=== PATIENT | female | born 1990 | race Caucasian/White ===

== ENCOUNTER 2018-03-21 22:36 | Emergency (ER) | payer OTHER, MEDICAID ==
[~2018-03-21] VITALS: Ht 162.6 cm; Wt 56.7 kg
[~2018-03-21 22:36] MED LIST: AMOXICILLIN500 M1 PO; AZO95 MG; CEFUROXIME500 MG PO; CIPROFLOXACIN500 M1 PO; GNP PRENATAL V PO; HYDROCODONE-AP1 EAC6 PO; IBUPROFEN200 M2; MACROBID 100 M100 M1 PO; METAMUCIL425 GM PO; NORCO 5-325 TA1 EACH PO; PHENERGAN 25 MG25 M1 PO; PRENATAL; PYRIDIUM200 MG PO; TRANSDERM-SCO1 PATC1 TRANSDERM; [UNRECOGNIZED DRUG - OTHER]
[2018-03-21] MEDS ORDERED: KEFLEX500 M1 PO (23:20)
[2018-03-21] MEDS ORDERED: PREDNISONE 10 M10 MG PO (23:20)
[2018-03-21] MEDS ORDERED: VISTARIL 25 MG25 M1 PO (23:20)
[2018-03-22 00:09] VITALS: BP 109/68
== END 2018-03-22 00:10 | disposition home or self-care (01) ==
LOC: M.ERS 22:36
DX: L23.7 Allergic contact dermatitis due to plants, except food (principal); L03.116 Cellulitis of left lower limb; K21.9 Gastro-esophageal reflux disease without esophagitis

== ENCOUNTER 2018-08-14 18:27 | Emergency (ER) | payer OTHER, MEDICAID ==
[~2018-08-14] VITALS: Ht 162.6 cm; Wt 59.0 kg
[~2018-08-14 18:27] MED LIST changes: +KEFLEX500 M1 PO; +PREDNISONE 10 M10 MG PO; +VISTARIL 25 MG25 M1 PO
[2018-08-14 18:36] VITALS: BP 110/71
[2018-08-14 18:56] LABS: URINE BILIRUBIN NEGATIVE (Negative); URINE BLOOD NEGATIVE (Negative); URINE CLARITY CLEAR; URINE COLOR YELLOW; URINE GLUCOSE-RANDOM NEGATIVE (Negative); URINE KETONES NEGATIVE (Negative); URINE LEUKOCYTES-REFLEX NEGATIVE (Negative); URINE NITRITE-REFLEX NEGATIVE (Negative); URINE PROTEIN NEGATIVE (Negative); URINE SPECIFIC GRAVITY >= 1.030 (1.005-1.030); URINE UROBILINOGEN 0.2 E.U./dl (0.2-1.0)
[2018-08-14] MEDS ORDERED: FLEXERIL PO (19:04)
[2018-08-14] MEDS ORDERED: IBU800 MG PO (19:05)
== END 2018-08-14 19:15 | disposition home or self-care (01) ==
LOC: M.ERS 18:27
PROVIDERS: Nurse Practitioner
DX: N30.10 Interstitial cystitis (chronic) without hematuria (principal); R10.9 Unspecified abdominal pain; F17.200 Nicotine dependence, unspecified, uncomplicated; K21.9 Gastro-esophageal reflux disease without esophagitis; Z98.890 Other specified postprocedural states

== ENCOUNTER 2019-03-16 22:41 | Emergency (ER) | payer OTHER, MEDICAID ==
[~2019-03-16] VITALS: Ht 160 cm; Wt 63.5 kg
[~2019-03-16 22:41] MED LIST changes: +FLEXERIL PO; +IBU800 MG PO
[2019-03-16] MEDS ORDERED: PRENATAL (22:54)
[2019-03-17 00:43] LABS: URINE BILIRUBIN NEGATIVE (Negative); URINE BLOOD NEGATIVE (Negative); URINE CLARITY CLEAR; URINE COLOR YELLOW; URINE GLUCOSE-RANDOM NEGATIVE (Negative); URINE KETONES NEGATIVE (Negative); URINE LEUKOCYTES NEGATIVE (Negative); URINE NITRITE POSITIVE (Negative); URINE PROTEIN NEGATIVE (Negative)
[2019-03-17 00:52] LABS: AMP/METHAMP POSITIVE (Negative); BACTERIA >30 Many /HPF (None Seen); BARBITURATES Negative (Negative); BENZODIAZEPINES Negative (Negative); CASTS None Seen /LPF (None Seen); COCAINE Negative (Negative); CRYSTALS None Seen /LPF (None Seen); METHADONE Negative (Negative); MUCUS 0-3 Light strn/LPF (None Seen); OPIATES Negative (Negative); PCP Negative (Negative); SQUAMOUS 4-10 Moderate /LPF (0-3); THC POSITIVE (Negative); TRANSITIONAL EPITHEL CELL 0-3 Few /LPF (None Seen); URINE RBC 3-10 Few /HPF (0-2); URINE WBC 6-15 Few /HPF (0-5)
[2019-03-17 01:02] LABS: ABSOLUTE BASOPHILS 0.1 thou/uL (0.0-0.2); ABSOLUTE EOSINOPHILS 0.1 thou/uL (0.0-0.7); ABSOLUTE LYMPHOCYTES 1.9 thou/uL (0.8-5.3); ABSOLUTE MONOCYTES 0.6 thou/uL (0.0-1.2); ABSOLUTE NEUTROPHILS 7.8 thou/uL (1.6-8.1); BASOPHILS 0.5 %; EOSINOPHILS 1.3 %; HEMOGLOBIN 11.3 gm/dL (12.0-15.0); LYMPHOCYTES 17.9 %; MCH 29.2 pg (26.0-34.0); MCHC 34.1 g/dL (28.0-37.0); MCV 85.6 fL (80.0-100.0); MONOCYTES 5.5 %; MPV 6.8 fl. (7.2-11.1); NUCLEATED RBCS 0 /100WBC; PLATELET COUNT* 302 thou/uL (150-400); POLYS 74.8 %; RBC 3.86 mil/uL (4.20-5.00); WBC 10.4 thou/uL (4.0-11.0)
[2019-03-17 01:09] LABS: CALCIUM 8.8 mg/dL (8.5-10.1); CREATININE 0.6 mg/dL (0.6-1.3); POTASSIUM 3.4 mmol/L (3.5-5.1)
[2019-03-17 01:19] LABS: ALBUMIN 2.9 g/dL (3.4-5.0); TOTAL BILIRUBIN 0.2 mg/dL (<0.1-1.0); TOTAL PROTEIN 6.7 g/dL (6.4-8.2)
[2019-03-17] MEDS ORDERED: CEFDINIR300 MG PO (01:26)
[2019-03-17 02:36] VITALS: BP 104/61
== END 2019-03-17 02:36 | disposition home or self-care (01) ==
LOC: M.ERS 22:41
PROVIDERS: Emergency Medicine
DX: O23.42 Unspecified infection of urinary tract in pregnancy, second trimester (principal); F15.10 Other stimulant abuse, uncomplicated; F17.200 Nicotine dependence, unspecified, uncomplicated; K21.9 Gastro-esophageal reflux disease without esophagitis; Z3A.18 18 weeks gestation of pregnancy

== ENCOUNTER 2019-04-24 18:35 | Emergency (ER) | payer OTHER, MEDICAID ==
[~2019-04-24] VITALS: Ht 162.6 cm; Wt 63.0 kg
[~2019-04-24 18:35] MED LIST changes: +CEFDINIR300 MG PO
[2019-04-24 18:44] VITALS: BP 113/71
== END 2019-04-24 19:27 | disposition left against medical advice (07) ==
LOC: M.ERS 18:35
DX: Z53.21 Procedure and treatment not carried out due to patient leaving prior to being seen by health care provider (principal)

== ENCOUNTER 2019-06-26 17:50 | Emergency (ER) | payer OTHER, MEDICAID ==
[~2019-06-26] VITALS: Ht 160 cm; Wt 72.6 kg
[2019-06-26] MEDS ORDERED: CELEXA20 MG PO (18:10)
[2019-06-26] MEDS ORDERED: AMOXICILLIN 50500 MG PO (19:46)
[2019-06-26] MEDS ORDERED: OFLOXACIN5 M1 OTIC (19:46)
[2019-06-26 19:58] VITALS: BP 110/66
== END 2019-06-26 19:59 | disposition home or self-care (01) ==
LOC: M.ERS 17:50
DX: H60.91 Unspecified otitis externa, right ear (principal); H66.91 Otitis media, unspecified, right ear; F17.200 Nicotine dependence, unspecified, uncomplicated; K21.9 Gastro-esophageal reflux disease without esophagitis